=== PATIENT | male | born 1975 | race American Indian/Alaskan Native ===

== ENCOUNTER 2019-03-13 15:08 | Observation (INO) | payer MEDICAID ==
--- NOTE | 2019-03-13 16:09 | Event Note ---
ED Screening Note Date of service: 03/13/19 Time: 16:06 ED Screening Note: 43 y o male presents with abd pain x this morning This initial assessment/diagnostic orders/clinical plan/treatment(s) is/are subject to change based on patients health status, clinical progression and re- assessment by fellow clinical providers in the ED. Further treatment and workup at subsequent clinical providers discretion. Patient/guardian urged not to elope from the ED as their condition may be serious if not clinically assessed and managed. Initial orders include: ua, labs
[2019-03-13 16:33] LABS: Basophils % (Auto) 0.2 % (0.0-1.8); Eosinophils # (Auto) 0.1 K/mm3 (0.0-0.4); Lymphocytes # (Auto) 0.9 K/mm3 (1.2-5.4); Lymphocytes % (Auto) 7.9 % (13.4-35.0); Mean Corpuscular HGB Conc 36 % (32-34); Mean Corpuscular Volume 91 fl (84-94); Monocytes # (Auto) 1.2 K/mm3 (0.0-0.8); Monocytes % (Auto) 9.8 % (0.0-7.3); Platelet Count 303 K/mm3 (140-440); Red Blood Count 5.19 M/mm3 (3.65-5.03); Red Cell Distribution Width 13.9 % (13.2-15.2)
[2019-03-13 16:40] LABS: Hematocrit 46.9 % (35.5-45.6); Hemoglobin 16.7 gm/dl (11.8-15.2)
[2019-03-13 16:49] LABS: BUN/Creatinine Ratio 7; Blood Urea Nitrogen 6 mg/dL (9-20); Calcium 9.5 mg/dL (8.4-10.2); Hemolysis Index 11
[2019-03-13 17:08] LABS: Alanine Aminotransferase 15 units/L (7-56); Albumin 4.4 g/dL (3.9-5); Bilirubin,Direct < 0.2 mg/dL (0-0.2)
[2019-03-13] MEDS ORDERED: NACL 0.9% 1000 ML 1,000 ML IV ONE ×2 (17:21→23:24)
[2019-03-13 17:38] LABS: Amorphous Crystals,Urine Few; Bacteria,Urine 1+ /HPF (Negative); Bilirubin,Urine NEG (Negative); Blood,Urine NEG (Negative); Color,Urine Amber (Yellow); Mucus,Urine 2+ /HPF; Urobilinogen,Urine < 2.0 mg/dL (<2.0)
[2019-03-13 17:39] LABS: WBC,Urine < 1.0 /HPF (0.0-6.0)
[2019-03-13] MEDS ORDERED: MORPHINE IV ONE (18:15)
--- NOTE | 2019-03-13 21:06 | Emergency Department Report ---
HPI - General Chief Complaint: Abdominal Pain Time Seen by Provider: 03/13/19 16:06 - HPI HPI: 43 yo aa male comes to ER with severe RUQ pain since Tuesday. Reports fullness in abd. BM normal today. Nausea but no vomiting. Pt does drink daily. Pt describes pain as achy deep pain. Nothing noted to make it better or worse. Took OTC meds at home with no relief. Noted to be hypertensive on admit reports he was told he had high blood pressure but is on no meds. Mom a/w Dad dec DM RX- none PCP- none ED Past Medical Hx - Past Medical History Previous Medical History?: Yes Hx Hypertension: Yes - Surgical History Past Surgical History?: No - Family History Family history: no significant - Social History Smoking Status: Current Every Day Smoker Substance Use Type: Alcohol ED Review of Systems ROS: Stated complaint: STOMACH PAIN Other details as noted in HPI Comment: All other systems reviewed and negative Constitutional: malaise. denies: chills, fever Eyes: denies: eye pain ENT: denies: throat pain Respiratory: denies: cough Cardiovascular: denies: chest pain, palpitations, dyspnea on exertion, orthopnea, edema, syncope, paroxysmal nocturnal dyspnea Endocrine: denies: excessive sweating Gastrointestinal: as per HPI, abdominal pain, nausea, constipation. denies: vomiting, diarrhea, hematemesis, melena, hematochezia Genitourinary: denies: urgency Musculoskeletal: denies: back pain Skin: denies: lesions Psychiatric: denies: anxiety Hematological/Lymphatic: denies: easy bleeding Physical Exam - Physical Exam Vital Signs: Vital Signs 03/13/19 16:05 Temperature 98.5 F Pulse Rate 120 H Respiratory 20 Rate Blood Pressure 158/119 O2 Sat by Pulse 99 Oximetry Physical Exam: ALERT AND ORIENTED NO FOCAL NEURO DEF MAEW WO WEAKNESS S1S2, TACHY LUNGS CTA NO CVA TENDERNESS POS. PAIN ON PALP RUQ AND EPIGASTRIC AREA ABD ROUND NO EDEMA/JVD ED Course Vital Signs 03/13/19 16:05 Temperature 98.5 F Pulse Rate 120 H Respiratory 20 Rate Blood Pressure 158/119 O2 Sat by Pulse 99 Oximetry ED Medical Decision Making - Lab Data Result diagrams: 03/13/19 16:24 03/13/19 16:24 - EKG Data EKG shows normal: sinus rhythm Rate: tachycardia - EKG Data When compared to previous EKG there are: no significant change Interpretation: no acute changes - Radiology Data Radiology results: report reviewed, image reviewed - Medical Decision Making Labs 03/13/19 03/13/19 03/13/19 16:24 16:24 16:24 WBC 12.0 H RBC 5.19 H Hgb 16.7 H Hct 46.9 H MCV 91 MCH 32 MCHC 36 H RDW 13.9 Plt Count 303 Lymph % (Auto) 7.9 L [place] % (Auto) 9.8 H Eos % (Auto) 1.0 Baso % (Auto) 0.2 Lymph # 0.9 L [place] # 1.2 H Eos # 0.1 Baso # 0.0 Seg Neutrophils % 81.1 H Seg Neutrophils # 9.8 H Sodium 133 L Potassium 4.0 Chloride 95.0 L Carbon Dioxide 24 Anion Gap 18 BUN 6 L Creatinine 0.9 Estimated GFR > 60 BUN/Creatinine Ratio 7 Glucose 112 H Calcium 9.5 Total Bilirubin 0.60 Direct Bilirubin < 0.2 Indirect Bilirubin 0.4 AST 16 ALT 15 Alkaline Phosphatase 74 Total Protein 8.0 Albumin 4.4 Albumin/Globulin Ratio 1.2 Lipase 454 H Urine Color Urine Turbidity Urine pH Ur Specific [place] Urine Protein Urine Glucose (UA) Urine Ketones Urine Blood Urine Nitrite Urine Bilirubin Urine Urobilinogen Ur Leukocyte Esterase Urine WBC (Auto) Urine RBC (Auto) U Epithel Cells (Auto) Urine Bacteria (Auto) Amorphous Crystals Urine Mucus 03/13/19 03/13/19 16:27 18:01 WBC RBC Hgb Hct MCV MCH MCHC RDW Plt Count Lymph % (Auto) [place] % (Auto) Eos % (Auto) Baso % (Auto) Lymph # [place] # Eos # Baso # Seg Neutrophils % Seg Neutrophils # Sodium Potassium Chloride Carbon Dioxide Anion Gap BUN Creatinine Estimated GFR BUN/Creatinine Ratio Glucose Calcium Total Bilirubin Direct Bilirubin Indirect Bilirubin AST ALT Alkaline Phosphatase Total Protein Albumin Albumin/Globulin Ratio Lipase 422 H Urine Color Melanie Urine Turbidity Slightly-cloudy Urine pH 6.0 Ur Specific [place] 1.018 Urine Protein 30 mg/dl Urine Glucose (UA) Neg Urine Ketones Neg Urine Blood Neg Urine Nitrite Neg Urine Bilirubin Neg Urine Urobilinogen < 2.0 Ur Leukocyte Esterase Neg Urine WBC (Auto) < 1.0 Urine RBC (Auto) 3.0 U Epithel Cells (Auto) < 1.0 Urine Bacteria (Auto) 1+ Amorphous Crystals Few Urine Mucus 2+ Vital Signs 03/13/19 16:05 Temperature 98.5 F Pulse Rate 120 H Respiratory 20 Rate Blood Pressure 158/119 O2 Sat by Pulse 99 Oximetry labs noted ua noted CT noted 1L NS/ zofran/ Morphine pain decreases with morphine but within hour it is back 1120 remains HTN 192/143, HR 110, RR20, pain 8/[address] Hadley 1130 DISCUSSED CASE WITH [facility] PT WILL BE ADMITTED FOR PAIN CONTROL AND FURTHER EVALUATION PT HAS BEEN UPDATED ON PLAN OF CARE - Differential Diagnosis ro pancreatitis/ choley./ kidney stone Critical care attestation.: If time is entered above; I have spent that time in minutes in the direct care of this critically ill patient, excluding procedure time. ED Disposition Clinical Impression: Abdominal pain Disposition: OP ADMIT IP TO THIS HOSP Is pt being admited?: Yes Does the pt Need Aspirin: No Condition: Stable Time of Disposition: 23:30
--- NOTE | 2019-03-13 22:44 | Cat Scan Report ---
CT abdomen pelvis w con INDICATION: abd pain. TECHNIQUE: All CT scans at this location are performed using the following dose modulation technique: Automated exposure control. CONTRAST: IV COMPARISON: None available. CT abdomen: Evaluation the parenchymal organs demonstrates moderate pancreatitis localized at the woo creatic head and uncinate process with adjacent inflammation. Fluid tracks down the anterior aspect o f the retroperitoneum. The remaining parenchymal organs are unremarkable. Negative for abdominal mass or localized fluid collection. The small bowel or abscess is not dilated or thickened. Colonic stool fluid is seen diffusely. Negative for wall thickening. CT PELVIS: Negative for mass, fluid collection or inflammation. IMPRESSION: 1. Moderate acute pancreatitis localized to the head/uncinate process. Fluid tracks down the anterior retroperitoneum. 2. Colonic fluid is likely reactive. Signer Name: Brendan Winkler MD Signed: 03/13/2019 10:39 PM Workstation Name: [id number]
[2019-03-13] MEDS ORDERED: APRESOLINE IV ONE (23:09)
[2019-03-13] MEDS ORDERED: TYLENOL PO PRN (23:49)
[2019-03-13] MEDS ORDERED: ZOFRAN IV PRN (23:49)
[2019-03-13] MEDS ORDERED: SODIUM CHLORIDE FLUSH SYRINGE 10 ML IV PRN (23:49)
[2019-03-14] MEDS ORDERED: ATIVAN IV PRN (00:07)
[2019-03-14] MEDS ORDERED: ATIVAN PO PRN ×2 (00:07)
--- NOTE | 2019-03-14 00:07 | History and Physical Report ---
History of Present Illness History of present illness: 43-year-old man who presents with abdominal pain 1 day. He states that the pain seems to be in his midabdomen and moved to the right upper quadrant. He's had pain since Tuesday but it only just became severe today. He does admit to drinking daily. He tried OTC pain medications with no relief. Nothing made it better or worse. Prompted him to come to the hospital. He denies nausea or vomiting. Past medical history; denies medical problems, denies being on medications Past surgical history Denies major surgeries Family history The family history of pancreatitis or biliary stones Social history current every day smoker, currently JVD alcohol drinker, admits to drinking heavily Medications and Allergies Allergies Allergy/AdvReac Type Severity Reaction Status Date / Time No Known Allergies Allergy Unverified 03/13/19 15:11 Active Meds: Active Medications Acetaminophen (Tylenol) 650 mg PO Q4H PRN PRN Reason: Pain MILD(1-3)/Fever >100.5/[place] Enoxaparin Sodium (Lovenox) 40 mg SUB-Q QDAY [facility] Folic Acid (Folvite) 1 mg PO QDAY [facility] Sodium Chloride (Nacl 0.9% 1000 Ml) 1,000 mls @ 100 mls/hr IV ONCE ONE Stop: 03/14/19 09:23 Sodium Chloride (Nacl 0.9% 1000 Ml) 1,000 mls @ 150 mls/hr IV DIRECT RO[place]IE Morphine Sulfate (Morphine) 4 mg IV Q4H PRN PRN Reason: Pain , Severe (7-10) Ondansetron HCl (Zofran) 4 mg IV Q4H PRN PRN Reason: Nausea And Vomiting Sodium Chloride (Sodium Chloride Flush Syringe 10 Ml) 10 ml IV BID ROSEMARIE Sodium Chloride (Sodium Chloride Flush Syringe 10 Ml) 10 ml IV PRN PRN PRN Reason: LINE FLUSH Thiamine HCl (Vitamin B-1) 100 mg PO QDAY [facility] Exam - Constitutional Vitals: Temp Pulse Resp BP Pulse Ox 98.5 F 120 H 20 158/119 99 03/13/19 16:05 03/13/19 16:05 03/13/19 16:05 03/13/19 16:05 03/13/19 16:05 General appearance: Present: no acute distress, well-nourished - EENT Eyes: Present: PERRL ENT: hearing intact, clear oral mucosa - Neck Neck: Present: supple, normal ROM - Respiratory Respiratory effort: normal Respiratory: bilateral: CTA - Cardiovascular Heart Sounds: Present: S1 & S2. Absent: rub, click - Extremities Extremities: pulses symmetrical, No edema Peripheral Pulses: within normal limits - Abdominal General gastrointestinal: Present: soft, non-tender, non-distended, normal bowel sounds Male genitourinary: Present: normal - Integumentary Integumentary: Present: clear, warm, dry - Musculoskeletal Musculoskeletal: gait normal, strength equal bilaterally - Psychiatric Psychiatric: appropriate mood/affect, intact judgment & insight - Neurologic Neurologic: CNII-XII intact, moves all extremities Results - Labs CBC & Chem 7: 03/14/19 05:21 03/14/19 05:21 Labs: Laboratory Last Values WBC 12.0 K/mm3 (4.5-11.0) H 03/13/19 16:24 RBC 5.19 M/mm3 (3.65-5.03) H 03/13/19 16:24 Hgb 16.7 gm/dl (11.8-15.2) H 03/13/19 16:24 Hct 46.9 % (35.5-45.6) H 03/13/19 16:24 MCV 91 fl (84-94) 03/13/19 16:24 MCH 32 pg (28-32) 03/13/19 16:24 MCHC 36 % (32-34) H 03/13/19 16:24 RDW 13.9 % (13.2-15.2) 03/13/19 16:24 Plt Count 303 K/mm3 (140-440) 03/13/19 16:24 Lymph % (Auto) 7.9 % (13.4-35.0) L 03/13/19 16:24 [place] % (Auto) 9.8 % (0.0-7.3) H 03/13/19 16:24 Eos % (Auto) 1.0 % (0.0-4.3) 03/13/19 16:24 Baso % (Auto) 0.2 % (0.0-1.8) 03/13/19 16:24 Lymph # 0.9 K/mm3 (1.2-5.4) L 03/13/19 16:24 [place] # 1.2 K/mm3 (0.0-0.8) H 03/13/19 16:24 Eos # 0.1 K/mm3 (0.0-0.4) 03/13/19 16:24 Baso # 0.0 K/mm3 (0.0-0.1) 03/13/19 16:24 Seg Neutrophils % 81.1 % (40.0-70.0) H 03/13/19 16:24 Seg Neutrophils # 9.8 K/mm3 (1.8-7.7) H 03/13/19 16:24 Sodium 133 mmol/L (137-145) L 03/13/19 16:24 Potassium 4.0 mmol/L (3.6-5.0) 03/13/19 16:24 Chloride 95.0 mmol/L (98-107) L 03/13/19 16:24 Carbon Dioxide 24 mmol/L (22-30) 03/13/19 16:24 18 mmol/L 03/13/19 16:24 BUN 6 mg/dL (9-20) L 03/13/19 16:24 0.9 mg/dL (0.8-1.5) 03/13/19 16:24 Estimated GFR > 60 ml/min 03/13/19 16:24 7 % 03/13/19 16:24 Glucose 112 mg/dL (75-100) H 03/13/19 16:24 Calcium 9.5 mg/dL (8.4-10.2) 03/13/19 16:24 0.60 mg/dL (0.1-1.2) 03/13/19 16:24 < 0.2 mg/dL (0-0.2) 03/13/19 16:24 0.4 mg/dL 03/13/19 16:24 AST 16 units/L (5-40) 03/13/19 16:24 ALT 15 units/L (7-56) 03/13/19 16:24 74 units/L (35-129) 03/13/19 16:24 8.0 g/dL (6.3-8.2) 03/13/19 16:24 4.4 g/dL (3.9-5) 03/13/19 16:24 1.2 % 03/13/19 16:24 422 units/L (13-60) H 03/13/19 18:01 Melanie (Yellow) 03/13/19 16:27 Slightly-cloudy (Clear) 03/13/19 16:27 6.0 (5.0-7.0) 03/13/19 16:27 Ur Specific [place] 1.018 (1.003-1.030) 03/13/19 16:27 30 mg/dl mg/dL (Negative) 03/13/19 16:27 Neg mg/dL (Negative) 03/13/19 16:27 Neg mg/dL (Negative) 03/13/19 16:27 Neg (Negative) 03/13/19 16:27 Neg (Negative) 03/13/19 16:27 Neg (Negative) 03/13/19 16:27 < 2.0 mg/dL (<2.0) 03/13/19 16:27 Ur Leukocyte Esterase Neg (Negative) 03/13/19 16:27 < 1.0 /HPF (0.0-6.0) 03/13/19 16:27 3.0 /HPF (0.0-6.0) 03/13/19 16:27 U Epithel Cells (Auto) < 1.0 /HPF (0-13.0) 03/13/19 16:27 1+ /HPF (Negative) 03/13/19 16:27 Amorphous Crystals Few 03/13/19 16:27 2+ /HPF 03/13/19 16:27 Assessment and Plan Assessment and plan: 43-year-old man with ongoing etoh abuse who pw abdominal pain CT abdomen and pelvis Moderate acute pancreatitis localized to the head/uncinate process, fluid tracked down the anterior retroperitoneum acute pancreatitis likely due to etoh, with check RUQ u/s since pain radiates there IVF, pain meds, nausea meds, trial of clear liquid diet BP has been elevated, has no history of hypertension. Will monitor blood pressure curve, hydralazine when necessary etoh abuse/dependence [facility] protocol. Thiamine, folate -Preventative health counseling performed for 17 minutes VTE prophylaxis?: Chemical
[2019-03-14] MEDS ORDERED: APRESOLINE IV PRN (00:08)
--- NOTE | 2019-03-14 02:06 | Ultrasound Report ---
ULTRASOUND ABDOMEN, LIMITED (RIGHT UPPER QUADRANT) INDICATION: ruq pain, pancreatitis. COMPARISON: None available. FINDINGS: Pancreas: Visualized portion shows no significant abnormality. Liver: Normal. Gallbladder: Normal. Bile ducts: Normal. Common Bile Duct measures 4.3 mm. Free fluid: None. Additional Findings: None. IMPRESSION: Unremarkable right upper quadrant ultrasound. Signer Name: Brendan Winkler MD Signed: 03/14/2019 2:01 AM Workstation Name: [id number]
[2019-03-14] MEDS ORDERED: NACL 0.9% 1000 ML 1,000 ML ONE (02:11)
[2019-03-14 05:34] LABS: Basophils # (Auto) 0.1 K/mm3 (0.0-0.1); Basophils % (Auto) 0.7 % (0.0-1.8); Eosinophils # (Auto) 0.2 K/mm3 (0.0-0.4); Eosinophils % (Auto) 1.9 % (0.0-4.3); Hematocrit 44.8 % (35.5-45.6); Hemoglobin 15.8 gm/dl (11.8-15.2); Lymphocytes # (Auto) 1.3 K/mm3 (1.2-5.4); Lymphocytes % (Auto) 10.2 % (13.4-35.0); Mean Corpuscular HGB Conc 35 % (32-34); Mean Corpuscular Volume 92 fl (84-94); Monocytes # (Auto) 1.4 K/mm3 (0.0-0.8); Monocytes % (Auto) 11.3 % (0.0-7.3); Platelet Count 281 K/mm3 (140-440); Red Blood Count 4.88 M/mm3 (3.65-5.03); Red Cell Distribution Width 14.2 % (13.2-15.2)
[2019-03-14 05:56] LABS: BUN/Creatinine Ratio 6; Blood Urea Nitrogen 6 mg/dL (9-20); Calcium 9.4 mg/dL (8.4-10.2); Hemolysis Index 15
[2019-03-14] MEDS ORDERED: APRESOLINE ONE ×3 (06:36→09:40)
[2019-03-14] MEDS ORDERED: LOVENOX SUB-Q ONE (09:54)
[2019-03-14] MEDS ORDERED: FOLVITE ONE (09:54)
[2019-03-14] MEDS ORDERED: VITAMIN B-1 ONE (09:55)
[2019-03-14] MEDS: LOVENOX SUB-Q SCH (10:01)
[2019-03-14] MEDS: FOLVITE PO SCH (10:01)
[2019-03-14] MEDS: VITAMIN B-1 PO SCH (10:02)
[2019-03-14] MEDS ORDERED: MORPHINE ONE (10:07)
[2019-03-14] MEDS: MORPHINE IV PRN ×4 (10:10→21:54)
[2019-03-14] MEDS: SODIUM CHLORIDE FLUSH SYRINGE 10 ML IV SCH ×2 (10:11→21:49)
[2019-03-14] MEDS: PROCARDIA XL PO SCH (11:29)
[2019-03-14] MEDS: NACL 0.9% 1000 ML 1,000 ML IV SCH ×2 (11:33→17:57)
--- NOTE | 2019-03-14 19:30 | Progress Note ---
Assessment and Plan 43-year-old man with ongoing ETOH abuse who presented with abdominal pain. CT abdomen and pelvis Moderate acute pancreatitis localized to the head/uncinate process, fluid tracked down the anterior retroperitoneum - Acute pancreatitis likely due to etoh, IVF, pain meds, trial of clear liquid diet - Hypertension Optyimize contro iwuith oral antihypertensiove now that pt is taking clear liquids Will monitor blood pressure curve, hydralazine when necessary - ETOH abuse/dependence [facility] protocol. Thiamine, folate -Preventative health counseling performed for - Tobacco abuse Tobacco cessasiton couselling done VTE prophylaxis: Lovenox Chemical Subjective Date of service: 03/14/19 Principal diagnosis: acute on chronic pancreatitis, alcohol abuse Interval history: Abdominal pain. Denies any nausea or vomiting. No hematemesis or melena. Objective - Exam Narrative Exam: Constitutional: Well-nourished well-developed. In no distress Head: Normocephalic atraumatic Eyes: Pupils are equal round and reactive to light Nose: No enlarged turbinates, no septal deviation. Mouth: Moist mucous membranes. Neck: Supple no thyromegaly. No bruit. No JVD Heart: Regular rate and rhythm, S1-S2 normal. No rubs murmurs or gallop Lungs: Clear to auscultation bilaterally. no rales or rhonchi Abdomen: Soft, tender. Bowel sound are present. Extremities: No edema, no cyanosis, no clubbing. Neuro: Alert oriented Oriented x3. No focal sensory or motor deficit. Skin: No rashes or hyperpigmented spots Musculoskeletal system: No joint pain or swelling Hematological: No petechia or subcutanous hemorrhages. Immunological: No multiple septic spots on the skin Lymphatic: No generalized lymphadenopathy Psychiatry: Euthymic. Calm. - Constitutional Vitals: Vital Signs - 12hr 03/14/19 03/14/19 03/14/19 08:06 09:05 09:41 Temperature 98.4 F Pulse Rate 108 H 108 H Respiratory 18 20 Rate Blood Pressure 157/114 Blood Pressure 157/114 [Right] O2 Sat by Pulse 98 98 Oximetry 03/14/19 03/14/19 03/14/19 10:10 10:16 11:01 Temperature Pulse Rate 118 H 120 H Respiratory 18 20 Rate Blood Pressure 161/101 Blood Pressure 146/100 [Right] O2 Sat by Pulse 98 99 Oximetry 03/14/19 03/14/19 16:25 18:26 Temperature 98.1 F Pulse Rate 111 H 104 H Respiratory 18 Rate Blood Pressure Blood Pressure 163/93 146/90 [Right] O2 Sat by Pulse 99 Oximetry - Labs CBC & Chem 7: 03/14/19 05:21 03/14/19 05:21 Labs: Abnormal lab results 03/14/19 03/14/19 Range/Units 05:21 05:21 WBC 12.4 H (4.5-11.0) K/mm3 Hgb 15.8 H (11.8-15.2) gm/dl MCHC 35 H (32-34) % Lymph % (Auto) 10.2 L (13.4-35.0) % [place] % (Auto) 11.3 H (0.0-7.3) % [place] # 1.4 H (0.0-0.8) K/mm3 Seg Neutrophils % 75.9 H (40.0-70.0) % Seg Neutrophils # 9.4 H (1.8-7.7) K/mm3 Sodium 134 L (137-145) mmol/L Chloride 95.7 L (98-107) mmol/L BUN 6 L (9-20) mg/dL Glucose 104 H (75-100) mg/dL
[2019-03-15] MEDS: NACL 0.9% 1000 ML 1,000 ML IV SCH ×3 (00:48→17:51)
[2019-03-15] MEDS: MORPHINE IV PRN ×4 (02:47→20:04)
[2019-03-15] MEDS: VITAMIN B-1 PO SCH (10:37)
[2019-03-15] MEDS: LOVENOX SUB-Q SCH (10:37)
[2019-03-15] MEDS: PROCARDIA XL PO SCH (10:37)
[2019-03-15] MEDS: FOLVITE PO SCH (10:37)
[2019-03-15] MEDS: SODIUM CHLORIDE FLUSH SYRINGE 10 ML IV SCH ×2 (10:38→21:21)
--- NOTE | 2019-03-15 20:47 | Progress Note ---
Assessment and Plan 43-year-old man with ongoing ETOH abuse who presented with abdominal pain. CT abdomen and pelvis Moderate acute pancreatitis localized to the head/uncinate process, fluid tracked down the anterior retroperitoneum - Acute pancreatitis - improving likely due to etoh, IVF, pain meds, trial of clear liquid diet - Hypertension Optyimize contro iwuith oral antihypertensiove now that pt is taking clear liquids Will monitor blood pressure curve, hydralazine when necessary - ETOH abuse/dependence [facility] protocol. Thiamine, folate -Preventative health counseling performed for - Tobacco abuse Tobacco cessasiton couselling done VTE prophylaxis: Lovenox Chemical Subjective Date of service: 03/15/19 Principal diagnosis: acute on chronic pancreatitis, alcohol abuse Interval history: Abdominal pain. Denies any nausea or vomiting. No hematemesis or melena. Objective - Exam Narrative Exam: Constitutional: Well-nourished well-developed. In no distress Head: Normocephalic atraumatic Eyes: Pupils are equal round and reactive to light Nose: No enlarged turbinates, no septal deviation. Mouth: Moist mucous membranes. Neck: Supple no thyromegaly. No bruit. No JVD Heart: Regular rate and rhythm, S1-S2 normal. No rubs murmurs or gallop Lungs: Clear to auscultation bilaterally. no rales or rhonchi Abdomen: Soft, tender. Bowel sound are present. Extremities: No edema, no cyanosis, no clubbing. Neuro: Alert oriented Oriented x3. No focal sensory or motor deficit. Skin: No rashes or hyperpigmented spots Musculoskeletal system: No joint pain or swelling Hematological: No petechia or subcutanous hemorrhages. Immunological: No multiple septic spots on the skin Lymphatic: No generalized lymphadenopathy Psychiatry: Euthymic. Calm. - Constitutional Vitals: Vital Signs - 12hr 03/15/19 03/15/19 11:42 17:09 Temperature 98.4 F 98.6 F Pulse Rate 102 H 110 H Respiratory 20 18 Rate Blood Pressure 148/105 161/111 O2 Sat by Pulse 99 99 Oximetry - Labs CBC & Chem 7: 03/14/19 05:21 03/14/19 05:21
[2019-03-16] MEDS: NACL 0.9% 1000 ML 1,000 ML IV SCH (00:39)
[2019-03-16] MEDS: MORPHINE IV PRN ×4 (00:41→14:27)
[2019-03-16 07:00] LABS: Basophils % (Auto) 0.6 % (0.0-1.8); Eosinophils # (Auto) 0.7 K/mm3 (0.0-0.4); Eosinophils % (Auto) 9.6 % (0.0-4.3); Hematocrit 43.4 % (35.5-45.6); Hemoglobin 14.9 gm/dl (11.8-15.2); Lymphocytes # (Auto) 1.4 K/mm3 (1.2-5.4); Lymphocytes % (Auto) 20.7 % (13.4-35.0); Mean Corpuscular HGB Conc 34 % (32-34); Mean Corpuscular Volume 93 fl (84-94); Monocytes # (Auto) 0.8 K/mm3 (0.0-0.8); Monocytes % (Auto) 11.5 % (0.0-7.3); Platelet Count 257 K/mm3 (140-440); Red Blood Count 4.67 M/mm3 (3.65-5.03); Red Cell Distribution Width 14.2 % (13.2-15.2)
[2019-03-16 07:17] LABS: Alanine Aminotransferase 10 units/L (7-56); Albumin 3.6 g/dL (3.9-5); BUN/Creatinine Ratio 8; Blood Urea Nitrogen 6 mg/dL (9-20); Hemolysis Index 12
[2019-03-16] MEDS: VITAMIN B-1 PO SCH (10:39)
[2019-03-16] MEDS: PROCARDIA XL PO SCH (10:39)
[2019-03-16] MEDS: FOLVITE PO SCH (10:39)
[2019-03-16] MEDS: LOVENOX SUB-Q SCH (10:40)
[2019-03-16] MEDS: SODIUM CHLORIDE FLUSH SYRINGE 10 ML IV SCH (10:40)
--- NOTE | 2019-03-16 17:40 | Discharge Summary ---
Providers - Providers Date of Admission: 03/13/19 23:49 Date of discharge: 03/16/19 Attending physician: CORNELIUS MORA Primary care physician: BELL PERSON Hospitalization Reason for admission: Acute pancreatitis, HTN Condition: Stable Pertinent studies: CT abdoman and pelvis shows acute pancreatitis localized at the head and uncinate RUQ ultrasound showed no acute event Procedures: none Hospital course: 43-year-old man who presents with abdominal pain 1 day. He states that the pain seems to be in his mid abdomen and moved to the right upper quadrant. He's had pain since 03/11/19. Tuesday but it only just became 03/13/19. He does admit to drinking daily. He tried OTC pain medications with no relief. Nothing made it better or worse. Prompted him to come to the hospital. He denies nausea or vomiting. On admission, pt was place on NPO, IVF. iv morphin. Lipase was monitored. Abdominal pain improved and pt was commence on oral sib and advance. Lipase level decreased. He tolerated regular diet and therefore discharged today to f/u with PCP in 3-5 days. Alcohol cessation counselling was done Disposition: DC-01 TO HOME OR SELFCARE Time spent for discharge: 35 min - Discharge Diagnoses (1) Pancreatitis, alcoholic, acute Status: Acute (2) Abdominal pain Status: Acute Core Measure Documentation - Palliative Care Palliative Care/ Comfort Measures: Not Applicable - Core Measures Any of the following diagnoses?: none Exam - Physical Exam Narrative exam: Constitutional: Well-nourished well-developed.In no distress Head: Normocephalic atraumatic Eyes: Pupils are equal round and reactive to light Nose: No enlarged turbinates, no septal deviation. Mouth: Moist mucous membranes. Neck: Supple no thyromegaly. No bruit. No JVD Heart: Regular rate and rhythm, S1-S2 normal. No rubs murmurs or gallop Lungs: Clear to auscultation bilaterally. no rales or rhonchi Abdomen: Soft, tender. Bowel sound are present. Extremities: No edema, no cyanosis, no clubbing. Neuro: Alert oriented Oriented x3. No focal sensory or motor deficit. Skin: No rashes or hyperpigmented spots Musculoskeletal system: No joint pain or swelling Hematological: No petechia or subcutanous hemorrhages. Immunological: No multiple septic spots on the skin Lymphatic: No generalized lymphadenopathy Psychiatry: Euthymic. Calm. - Constitutional Vitals: Temp Pulse Resp BP Pulse Ox 98.0 F 101 H 20 156/100 98 03/16/19 10:59 03/16/19 10:59 03/16/19 10:59 03/16/19 10:59 03/16/19 10:59 Plan Activity: fall precautions Weight Bearing Status: Weight Bear as Tolerated Diet: regular Follow up with: PRIMARY CARE, [Primary Care Provider] - 3-5 Days Prescriptions: Folic Acid [Folvite] 1 mg PO QDAY #30 tablet NIFEdipine XL [Procardia Xl] 30 mg PO QDAY #30 tablet Thiamine [Vitamin B-1] 100 mg PO QDAY #30 tablet
[2019-03-16 18:15] VITALS: BP 149/111
== END 2019-03-16 18:10 | disposition home or self-care (01) ==
LOC: ED 15:08 → 3A 23:49
PROVIDERS: ADMIT Internal Medicine; ATTEND Family Medicine
DX: K85.20 Alcohol induced acute pancreatitis without necrosis or infection (principal); K85.90 Acute pancreatitis without necrosis or infection, unspecified; F10.20 Alcohol dependence, uncomplicated; F17.210 Nicotine dependence, cigarettes, uncomplicated
CPT/HCPCS: 36415; 74177; 76705; 80048; 80053; 80076; 81001; 83690; 85025; 93005; 93010; 96372; 96374; 96375; 96376; 99284; 99406; G0378; J0360; J1650; J2270; J7030; Q9967